=== PATIENT | male | born 1995 | race Caucasian/White ===

== ENCOUNTER 2016-03-30 09:04 | Emergency (ER) | payer OTHER ==
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
[2016-03-30] MEDS ORDERED: IBUPROFEN 600 MG TAB PO ONE (09:09)
--- NOTE | 2016-03-30 10:35 | DX ---
Wrist Minimum of 3 Views Right History: Trauma. Pain. Comparison exam: Left wrist radiographs Findings: A Salter-Mcfarland III fracture involves the distal growth plate of the right radius. The frac ture extends to the volar aspect of the growth plate and extends in oblique fashion through the epiph ysis along the ulnar margin. Fracture is nondisplaced. Study otherwise normal. Impression: Nondisplaced Salter-Mcfarland III fracture of the distal right radius. Examination reviewed with Dr. Sherice Muller
--- NOTE | 2016-03-30 10:35 | DX ---
Wrist 2 Views Left History: Comparison exam for right wrist. Comparison exam: None available. Findings: Alignment is normal. Joint spaces are maintained. No fracture identified. Impression: Negative left wrist radiographs.
--- NOTE | 2016-03-30 10:36 | DX ---
Right forearm, 2 views. History: Trauma. Pain. Findings: Nondisplaced Salter-Mcfarland III fracture involves the distal right radius, with fracture ext ending through the growth plate along the radial margin and through the epiphysis along the ulnar mar gin. There is slight widening of the physis volarly. Radius and ulna otherwise normal. Impression: Salter-Mcfarland III fracture, distal right radius, nondisplaced.
[2016-03-30 11:11] VITALS: BP 125/67; PULSE 64; RESP 15; TEMP 98.8; O2SAT 95
== END 2016-03-30 11:17 | disposition home or self-care (01) ==
DX: S59.231A Salter-Harris Type III physeal fracture of lower end of radius, right arm, initial encounter for closed fracture (principal); S52.91XA Unspecified fracture of right forearm, initial encounter for closed fracture; X58.XXXA Exposure to other specified factors, initial encounter
CPT/HCPCS: A4565; G0397